=== PATIENT | male | born 1945 | race Caucasian/White ===

== ENCOUNTER → 2019-03-11 | Outpatient (CLI) | payer MEDICARE | END | disposition still patient (30) | LOC: PT 13:00 | DX: Z47.1 Aftercare following joint replacement surgery (principal); Z96.641 Presence of right artificial hip joint ==

== ENCOUNTER 2019-04-12 14:00 | Outpatient (RCR) | payer MEDICARE | END 2019-04-12 14:30 | disposition still patient (30) | LOC: PT 14:00 | DX: M25.551 Pain in right hip (principal); Z96.641 Presence of right artificial hip joint ==

== ENCOUNTER → 2023-08-19 | Outpatient (CLI) | payer MEDICARE | LOC: RAD 09:30 | DX: M51.46 Schmorl's nodes, lumbar region (principal); M47.816 Spondylosis without myelopathy or radiculopathy, lumbar region; C65.1 Malignant neoplasm of right renal pelvis ==

== ENCOUNTER → 2023-09-11 | Outpatient (CLI) | payer MEDICARE | LOC: RAD 09:27 | DX: M25.551 Pain in right hip (principal); Z96.641 Presence of right artificial hip joint ==